=== PATIENT | female | born 2000 | race Caucasian/White ===

== ENCOUNTER 2018-07-06 08:20 | Emergency (ER) | payer BC ==
--- NOTE | 2018-07-06 08:28 | EDPHY ---
H & P Stated Complaint: syncope Time Seen by Provider: 07/06/18 08:28 - Personal History LMP (Females 10-55): 22-28 Days Ago Current Tetanus/Diphtheria Vaccine: Yes Current Tetanus Diphtheria and Acellular Pertussis (TDAP): Yes - Medical/Surgical History Hx Asthma: No Hx Chronic Respiratory Disease: No Hx Diabetes: No Hx Cardiac Disease: No Hx Renal Disease: No Hx Cirrhosis: No Hx Alcoholism: No Hx HIV/AIDS: No Hx Splenectomy or Spleen Trauma: No Other PMH: tonsilectomy - Social History Smoking Status: Never smoked Constitutional: Initial Vital Signs Temperature (C) 36.6 C 07/06/18 08:24 Heart Rate 102 H 07/06/18 08:24 Respiratory Rate 16 07/06/18 08:24 Blood Pressure 149/93 H 07/06/18 08:24 O2 Sat (%) 95 07/06/18 08:24 O2 Delivery Mode Room Air Allergies/Adverse Reactions: No Known Allergies Allergy (Unverified 07/06/18 08:23) Home Medications: Medication Instructions Recorded Azithromycin [Zithromax] 250 mg PO DAILY #6 tab 07/06/18 Bcp 07/06/18 Medical Decision Making ED Course/Re-evaluation: CHIEF COMPLAINT: Syncope HISTORY OF PRESENT ILLNESS: This patient is a healthy 17 year old female. She presents following a syncopal episode this morning. Last night, she had a headache and sore throat and felt weak and fatigued over the weekend. This morning after waking, she was feeling better and began getting ready for class. She was putting in her contacts and her roommate witnessed her have a syncopal event. She did note some abdominal discomfort and nausea prior to this. She has been staying well hydrated. She denies striking her head. No increased head pain, neck pain, or vomiting. No urinary complaints including dysuria. The patient denies exposure to any ill contacts. She is currently feeling better. REVIEW OF SYSTEMS: A comprehensive 10 system review of systems is otherwise negative aside from elements mentioned in the history of present illness and medical decision making. PHYSICAL EXAM: HR, BP, O2 Sat, RR. Temp noted General Appearance: Alert, well hydrated, appropriate, and non-toxic appearing. Head: Small bump over right frontal scalp. Otherwise atraumatic. Eyes: Pupils equal, round, reactive to light and accommodation, EOMI, no trauma , no injection. Ears: Clear bilaterally, no perforation, normal landmarks Nose: Atraumatic, no rhinorrhea, clear. Throat: Erythematous throat with mild right tonsillar border exudates. Mucus membranes moist. Neck: Supple, 2+ carotid upstroke, nontender, no lymphadenopathy. Respiratory: No retractions, no distress, no wheezes, and no accessory muscle use. Lungs are clear to auscultation bilaterally. Cardiovascular: Regular rate and rhythm, no murmurs, rubs, or gallops. Bilateral carotid, radial, dorsalis pedis, and posterior tibial pulses intact. Good capillary refill all extremities. Gastrointestinal: Abdomen is soft, nontender, non-distended, no masses, no rebound, no guarding, no peritoneal signs. Musculoskeletal: Normal active ROM of all extremities, atraumatic. Neurological: Alert, appropriate, and interactive. The patient has normal DTRs and non-focal cranial nerves, motor, sensory, and cerebellar exam. Skin: No rashes, good turgor, no nodules on palpation. Past medical history: Denies. Past surgical history: Tonsillectomy Family history: Noncontributory Social history: Student at [employer]. Originally from [place]. Single. DIFFERENTIAL DIAGNOSIS: The differential diagnosis for the patient's syncope included but was not limited to vasovagal syncope, arrhythmia, dehydration, cardiogenic causes, neurogenic causes, and blood loss. MEDICAL DECISION MAKIN17 y/o female presents following a syncopal event this morning. On exam, the patient has pharyngeal erythema, mild right tonsillar exudates. She is currently feeling better but continues to complain of sore throat. Patient's presentation is consistent with vasovagal syncope secondary to illness. Exam consistent with bacterial pharyngitis. Plan to administer 40mg PO Prednisone here in the emergency department. Plan to discharge patient home in good condition with prescription for z-pack. Follow up and return precautions discussed. She is comfortable with this plan. - Data Points Medications Given: Discontinued Medications Prednisone (Prednisone) 40 mg PO EDNOW ONE Stop: 07/06/18 08:38 Last Admin: 07/06/18 08:56 Dose: 40 mg Departure - Departure Disposition: Home, Routine, Self-Care Clinical Impression: Pharyngitis Qualifiers: Pharyngitis/tonsillitis etiology: unspecified etiology Qualified Code(s): J02.9 - Acute pharyngitis, unspecified Syncope Qualifiers: Syncope type: vasovagal syncope Qualified Code(s): R55 - Syncope and collapse Condition: Good Instructions: Azithromycin (By mouth), Pharyngitis (ED), Syncope (ED) Additional Instructions: 1. Take z-pack as directed. 2. Follow up with your primary care provider. 3. Stay well hydrated. 4. Return to the emergency department for fever, inability to swallow, difficulty breathing, or other worsening of condition. Referrals: [facility] [Clinic] - As per Instructions Stand Alone Forms: School Excuse Prescriptions: Azithromycin [Zithromax] 250 mg PO DAILY #6 tab Report Scribed for: Herberth Amaya Report Scribed by: Jessica Davidson Date of Report: 07/06/18 Time of Report: 08:30
[2018-07-06] MEDS ORDERED: predniSONE 20 MG TAB PO ONE (08:37)
[2018-07-06 08:59] VITALS: BP 135/98
== END 2018-07-06 08:59 | disposition home or self-care (01) ==
DX: R55 Syncope and collapse (principal); J02.9 Acute pharyngitis, unspecified
CPT/HCPCS: J7512